=== PATIENT | female | born 1985 | race Caucasian/White ===

== ENCOUNTER 2018-11-05 10:03 | Emergency (ER) | payer OTHER ==
[~2018-11-05] VITALS: Ht 149.9 cm; Wt 63.5 kg
[~2018-11-05 10:03] MED LIST: CRESTOR10 MG PO; PANTOPRAZOLE SO40 MG PO; ZOLOFT50 MG PO
[2018-11-05] MEDS ORDERED: PROMETHAZINE HCL (IM) 25 MG/ML VIAL IV STA (10:19)
[2018-11-05] MEDS ORDERED: SODIUM CHLORIDE 0.9% 1000ML 1,000 ML IV STA (10:19)
[2018-11-05] MEDS ORDERED: MORPHINE SULFATE INJ 4 MG/ML INJ 1ML IV NR (10:30)
[2018-11-05 10:37] LABS: BILIRUBIN,URINE NEGATIVE (NEGATIVE); CLARITY,URINE CLEAR (CLEAR); COLOR,URINE YELLOW (YELLOW); KETONES,URINE NEGATIVE (NEGATIVE); LEUKOCYTE ESTERASE ,URINE NEGATIVE (NEGATIVE); NITRITE,URINE NEGATIVE (NEGATIVE); PREGNANCY TEST, URINE NEGATIVE (NEGATIVE); PROTEIN,URINE DIPSTICK NEGATIVE (NEGATIVE); URINE UROBILINOGEN 0.2 mg/dL (0.2 - 1)
[2018-11-05 10:53] LABS: BACTERIA,URINE RARE /HPF; EPITHELIAL CELLS,URINE FEW /LPF
[2018-11-05] MEDS ORDERED: DIATRIZOATE MEGL/DIATRIZOA SOD 30 ML BTL PO ONE (11:33)
[2018-11-05 11:43] LABS: BASOPHILS # (AUTO) 0.1 (0.0-0.1); BASOPHILS % 0.6 % (0.0-1.0); EOSINOPHILS % 0.1 % (0.0-6.0); HEMATOCRIT 38.4 % (34.2-44.1); HEMOGLOBIN 13.2 g/dL (12.0-16.0); LYMPHOCYTES # (AUTO) 1.7 (1.0-3.2); LYMPHOCYTES % 16.9 % (18.0-39.1); MEAN CORPUSCULAR HEMOGLOBIN 29.1 pg (28-32); MEAN CORPUSCULAR HGB CONC 34.4 g/dL (31-35); MEAN CORPUSCULAR VOLUME 84.6 fL (81-99); MONOCYTES # (AUTO) 0.3 (0.2-0.8); MONOCYTES % 3.3 % (4.4-11.3); NEUTROPHILS % 78.7 % (38.7-80.0); PLATELET COUNT 393 x10e3/uL (140-360); RED BLOOD COUNT 4.54 x10e6/uL (3.6-5.1); RED CELL DISTRIBUTION WIDTH 12.9 % (11.7-14.4)
[2018-11-05 12:13] LABS: AMPHETAMINES SCREEN,URINE NEGATIVE (NEGATIVE); BENZODIAZEPINES SCREEN,URINE NEGATIVE (NEGATIVE); PHENCYCLIDINE SCREEN,URINE NEGATIVE (NEGATIVE)
[2018-11-05 12:13] LABS: ALANINE AMINOTRANSFERASE 10 IU/L (0-55); ALBUMIN 4.3 g/dL (3.5-5.0); ALBUMIN/GLOBULIN RATIO 1.3 (0.8-2.0); ALKALINE PHOSPHATASE 51 IU/L (40-150); AMYLASE 77 U/L (25-125); ANION GAP 13.8 mmol/L (8-16); BLOOD UREA NITROGEN 5 mg/dL (7-26); BUN/CREATININE RATIO 6 (6-25); CALCIUM 9.5 mg/dL (8.4-10.2); CARBON DIOXIDE 25 mmol/L (22-29); CHLORIDE 102 mmol/L (98-107); CREATININE, SERUM 0.77 mg/dL (0.57-1.11); EST GLOMERULAR FILTRATION RATE > 60 ML/MIN (60-); GLUCOSE 98 mg/dL (74-118); LIPASE 11 U/L (8-78); POTASSIUM 3.8 mmol/L (3.5-5.1); SODIUM 137 mmol/L (136-145)
--- NOTE | 2018-11-05 13:26 | Diagnostic Imaging Report ---
EXAMINATION: CT of the abdomen and pelvis with contrast. TECHNIQUE: Spiral CT images of the abdomen and pelvis were performed from the lung bases to the lesser trochanters after the intravenous administration of 100 cc of Isovue-370 and the oral administration of Gastrografin. Coronal and sagittal reformatted images were obtained. COMPARISON: None. CLINICAL HISTORY:Left-sided abdominal pain, history of Crohn's disease DISCUSSION: ABDOMEN/PELVIS: LOWER THORAX:Unremarkable. HEPATOBILIARY: No focal hepatic lesions. No intra-or extrahepatic biliary ductal dilation. The gallbladder is normal. SPLEEN: No splenomegaly. PANCREAS: No focal masses or ductal dilatation. ADRENALS: No adrenal nodules. KIDNEYS/URETERS: Subcentimeter hypoattenuating lesion projecting from the upper pole of the right kidney too small to further characterize but likely to represent a small cyst. Similar lesion in the interpolar left kidney. PELVIC ORGANS/BLADDER: Urinary bladder is incompletely distended and poorly evaluated. Intrauterine device within the endometrial cavity. No adnexal mass. PERITONEUM/RETROPERITONEUM: No free air or fluid. LYMPH NODES: No intra-abdominal, retroperitoneal, pelvic or inguinal lymphadenopathy. VESSELS: The celiac trunk,superior and inferior mesenteric and bilateral renal arteries are patent The portal, superior mesenteric and splenic veins are patent. GI TRACT: The large bowel shows no evidence of distention or wall thickening. The appendix is normal. There is no small bowel dilatation to suggest obstruction. BONES AND SOFT TISSUE: No bony destructive lesions. No soft tissue abnormalities. IMPRESSION: No acute intra-abdominal or pelvic CT abnormalities. Signed by: Dr. Mika Kilgore M.D. on 11/05/2018 1:23 PM
[2018-11-05 13:59] VITALS: BP 129/94
[2018-11-05] MEDS ORDERED: IOPAMIDOL 370 MG/ML 200 ML INFUS..BTL INJ ONE (21:53)
[2018-11-05] MEDS ORDERED: SODIUM CHLORIDE 0.9% 50ML 50 ML ONE (21:53)
== END 2018-11-05 14:08 | disposition home or self-care (01) ==
LOC: ER 10:03
DX: R10.12 Left upper quadrant pain (principal); R10.32 Left lower quadrant pain; R11.2 Nausea with vomiting, unspecified; K50.90 Crohn's disease, unspecified, without complications
CPT/HCPCS: 36415; 74177; 80053; 80307; 81001; 81025; 82150; 83690; 83735; 85025; 99284; J2270; J2550; J7030; Q9967

== ENCOUNTER → 2018-11-21 | Day surgery (SDC) | payer OTHER ==
[~2018-11-21] MED LIST changes: +DICYCLOMINE HCL10 MG PO; +FENTANYL CITRATE/PF 100MCG/2 ML INJ ONE; +LIDOCAINE HCL 2% LOCAL INJ 5 ML SDV VIAL INJ ONE; +MIDAZOLAM HCL 2 MG/2 ML VIAL ONE; +PHENERGAN PO; +PROPOFOL IV EMULSION 10 MG/ML 50 ML VIAL ONE
--- OUTSIDE RECORDS SUMMARY | 2018-11-21 07:42 | XMS REPORT ---
Author Author [facility] Address Unknown Phone Unavailable Care Team Providers Care Production Control Clerk Name Role Phone Gracy VALENTINE Unavailable Unavailable Problems This patient has no known problems. Allergies, Adverse Reactions, Alerts This patient has no known allergies or adverse reactions. Medications This patient has no known medications. Results Test Description Test Time Test Comments Text Results Atomic Results Result Comments CT ABDOMEN/PELVIS W 2018-11-05 13:17:[address] [address] Patient Name: EL CHO MR #: [id number] : 1985 Age/Sex: 33/F Req #: [id number] Adm Physician: Ordered by: KELVIN PENALOZA CRANE ENGINEER Report #: [id number] Location: ER Room/Bed: Procedure: [id number] CT/CT ABDOMEN/PELVIS W Exam Date: 11/05/18 Exam Time: 1235 REPORT STATUS: Signed EXAMINATION: CT of the abdomen and pelvis with contr ast. TECHNIQUE: Spiral CT images of the abdomen and pelvis were performed from the lung bases to the lesser trochanters after the intravenous administration of 100 cc of Isovue-370 and the oral administration of Gastrografin. Coronal and sagittal reformatted images were obtained. COMPARISON: None. CLINICAL HISTORY:Left-sided abdominal pain, history of Crohn's disease DISCUSSION: ABDOMEN/PELVIS: LOWER THORAX:Unremarkable. HEPATOBILIARY: No focal hepatic lesions. No intra-or extrahepatic biliary ductal dilation. The gallbladder is normal. S PLEEN: No splenomegaly. PANCREAS: No focal masses or ductal dilatation. ADRENALS: No adrenal nodules. KIDNEYS/URETERS: Subcentimeter hypoattenuating lesion projecting from the upper pole of the right kidney too small to further characterize but likely to represent a small cyst. Similar lesion in the interpolar left kidney. PELVIC ORGANS/BLADDER: Urinary bladder is incompletely distended and poorly evaluated. Intrauterine device within the endometrial cavity. No adnexal mass. PERITONEUM/RETROPERITONEUM: No free air or fluid. LYMPH NODES: No intra-abdominal, retroperitoneal, pelvic or inguinal lymphadenopathy. VESSELS: The celiac trunk,superior and inferior mesenteric and bilateral renal arteries are patent The portal, superior mesenteric and splenic veins are patent. GI TRACT: The large bowel shows no evidence of distention or wall thickening. The appendix is normal. There is no small bowel dilatation to suggest obstruction. BONES AND SOFT TISSUE: No bony destructive lesions. No soft tissue abnormalities. IMPRESSION: No acute intra-abdominal or pelvic CT abnormalities. Signed by: Dr. Juve Combs M.D. on 11/05/2018 1:23 PM Dictated By: JUVE COMBS MD [id number] Transcribed By: GEETA on 11/05/18 1323 COPY TO: KELVIN PENALOZA NP
[2018-11-21 12:05] VITALS: BP 131/87
[2018-11-21 13:44] LABS: WBC,FECAL (FECAL LACTOFERRIN) NEGATIVE (NEGATIVE)
[2018-11-21 13:45] LABS: C DIFFICILE TOXIN A&B AMP PROB NEGATIVE (NEGATIVE)
--- NOTE | 2018-11-21 19:17 | Operative Report ---
DATE OF PROCEDURE: 11/21/2018 SURGEON: Eze Christensen MD PROCEDURES: EGD with biopsies and colonoscopy with polypectomy and biopsies. INDICATIONS FOR EGD: Heartburn, indigestion, nausea, and vomiting. INDICATIONS FOR COLONOSCOPY: Diarrhea, intermittent. MEDICATIONS: The patient was done under MAC. Please see anesthesiologist's note. PROCEDURE IN DETAIL: With the patient in left lateral decubitus position, a flexible fiberoptic Olympus gastroscope was introduced into the esophagus under direct visualization without any difficulty. There was some mild patchy erythema noted in distal esophagus. The scope was then advanced with ease into the stomach. Mucosa overlying the antrum and the body revealed some patchy erythema, low-grade to moderate edema, and biopsies were obtained and sent to stain for H pylori. Pylorus appeared to be of normal contour and shape. It was intubated with ease and the scope was advanced all the way to the 2nd portion of the duodenum. The scope was then withdrawn slowly, mucosa overlying the proximal 2nd portion and the duodenal bulb grossly appeared to be within normal limits. Biopsies were obtained to rule out sprue. The scope was then withdrawn back into the stomach and retroflexed. Mucosa overlying the fundus and cardia appeared to be within normal limits. The scope was then straightened out. The stomach was decompressed. The scope was subsequently withdrawn. The patient tolerated procedure well. IMPRESSION: 1. Distal esophagitis. 2. Gastritis, biopsied. Biopsies sent to stain for H pylori. 3. Rule out sprue. PLAN: Follow up pathology. Increase Protonix to 40 mg one p.o. a.c. b.i.d. The patient was then turned around. After adequate lubrication of the anal canal, a flexible fiberoptic Olympus colonoscope was inserted into the rectum with ease and advanced all the way to the cecum. Mucosa overlying the cecum appeared to be within normal limits. Ileocecal valve was intubated and the scope was advanced into the terminal ileum. Biopsies were obtained. The scope was then withdrawn back into the colon. It was then withdrawn slowly and one polyp was snared from the proximal ascending colon and polypectomy site was hemoclipped. There were some patchy mild inflammatory changes noted pretty much throughout the colon and multiple random biopsies were obtained. Two polyps were hot biopsied from the sigmoid. Two polyps were hot biopsied from the rectum. Scope was then retroflexed into the distal rectum and small internal hemorrhoids were noted, none of which was actively bleeding. The scope was then straightened out, it was subsequently withdrawn after securing an adequate stool specimen that was sent for the appropriate stool studies. The patient tolerated procedure well. IMPRESSION: 1. Ascending colon polyp snared and polypectomy site hemoclipped. 2. Mild patchy colitis. 3. Sigmoid colon polyps x2, hot biopsied. 4. Rectal polyps x2, hot biopsied. 5. Internal hemorrhoids, none actively bleeding. PLAN: Follow up histology. Follow up stool studies. Initiate VSL #3 one p.o. daily. Increase Bentyl to 20 mg one p.o. t.i.d. Eze Christensen MD [facility] [place] /[id number] cc: Chacho Christensen MD
== END | disposition home or self-care (01) ==
LOC: OR 07:39
PROVIDERS: ATTEND Internal Medicine Gastroenterology
DX: K29.60 Other gastritis without bleeding (principal); K63.5 Polyp of colon; K62.1 Rectal polyp; K52.9 Noninfective gastroenteritis and colitis, unspecified; K28.9 Gastrojejunal ulcer, unspecified as acute or chronic, without hemorrhage or perforation; K20.8 Other esophagitis; K64.8 Other hemorrhoids; F32.9 Major depressive disorder, single episode, unspecified; F41.9 Anxiety disorder, unspecified
CPT/HCPCS: 43239; 45380; 45384; 45385; 81025; 83630; 83993; 87045; 87177; 87328; 87493; J2001; J2250; J2704; 45378

== ENCOUNTER → 2020-02-20 | Day surgery (SDC) | payer BC, OTHER ==
[~2020-02-20] MED LIST changes: +GLYCOPYRROLATE INJ 0.2 MG/ML VIAL ONE; +HYOSCYAMINE 0.125 MG TAB ONE; +KETAMINE HCL INJ 50 MG/ML 10 ML VIAL ONE; +METOCLOPRAMIDE HCL 10 MG/2ML VIAL ONE; +MIDAZOLAM HCL 5 MG/ML VIAL ONE; +PROPOFOL IV EMULSION 10 MG/ML 20 ML VIAL ONE; -PROPOFOL IV EMULSION 10 MG/ML 50 ML VIAL ONE; +REGLAN10 MG PO; +TEMAZEPAM15 MG; +XANAX0.25 MG PO; +ZOFRAN8 MG PO
[2020-02-20 15:20] VITALS: BP 136/97
--- NOTE | 2020-02-20 16:14 | Operative Report ---
DATE OF PROCEDURE: 02/20/2020 SURGEON: Eze Christensen MD PROCEDURES: EGD with biopsies and colonoscopy with biopsies. INDICATION FOR EGD: Nausea and vomiting. INDICATIONS FOR COLONOSCOPY: Lower abdominal pain, history of Crohn disease. MEDICATIONS: The patient was done under MAC, please see anesthesiologist's note. PROCEDURE IN DETAIL: With the patient in left lateral decubitus position, a flexible fiberoptic Olympus gastroscope was introduced into the esophagus under direct visualization without any difficulty. There was some patchy erythema noted in distal esophagus. The scope was then advanced with ease into the stomach. Mucosa overlying the antrum and the body revealed some patchy erythema and [id number] edema, and biopsies were obtained, sent to stain for H. pylori. Pylorus was of normal contour and shape, it was intubated with ease and the scope, was advanced all the way to the second portion of the duodenum. Biopsies were obtained from the proximal second portion and the duodenal bulb to rule out sprue. The scope was then withdrawn back into the stomach and retroflexed, mucosa overlying the fundus and the cardia appeared to be within normal limits. The scope was then straightened out, it was subsequently withdrawn. The patient tolerated the procedure well. IMPRESSION: 1. Mild distal esophagitis. 2. Gastritis, biopsied, biopsies sent to stain for H. pylori. 3. Rule out sprue. PLAN: 1. Follow up histology. 2. Increase Protonix to 40 mg one p.o. a.c. b.i.d. DESCRIPTION OF PROCEDURE: The patient was then turned around and after adequate lubrication of the anal canal, a flexible fiberoptic Olympus colonoscope was inserted into the rectum with ease and advanced all the way to the cecum. There was some retained fecal material in the right colon, but visualization was fair. Ileocecal valve was intubated and the scope was advanced into the terminal ileum. The overlying mucosa appeared to be within normal limits. Biopsies were obtained. The scope was then withdrawn back into the colon, it was then withdrawn slowly whatever was visualized, the mucosa overlying the ascending and the transverse grossly appeared to be within normal limits. There was some patchy mild inflammatory changes noted in the left colon, multiple random biopsies were obtained. The scope was then retroflexed into the distal rectum and small internal hemorrhoids were noted, none of which was actively bleeding. The scope was then straightened out, it was subsequently withdrawn. The patient tolerated the procedure well. IMPRESSION: 1. Terminal ileum within normal limits, biopsies obtained. 2. Mild patchy inflammatory changes of left colon, biopsies obtained. 3. Internal hemorrhoids, none actively bleeding. PLAN: 1. Followup histology. 2. Check IBD panel. CRP, sedimentation rate and celiac panel. 3. Initiate VSL #3 one p.o. b.i.d. 4. Continue Bentyl 20 mg one p.o. t.i.d. along with her Crohn disease medical regimen. Eze Christensen MD [facility] [place][id number] cc: Chacho Christensen MD
[2020-02-25 06:10] LABS: ENDOMYSIAL ANTIBODIES, IGA Negative (Negative)
== END | disposition home or self-care (01) ==
LOC: OR 10:55
PROVIDERS: ATTEND Internal Medicine Gastroenterology
DX: K29.60 Other gastritis without bleeding (principal); K52.9 Noninfective gastroenteritis and colitis, unspecified; K29.80 Duodenitis without bleeding; K28.9 Gastrojejunal ulcer, unspecified as acute or chronic, without hemorrhage or perforation; K20.8 Other esophagitis; K59.00 Constipation, unspecified; K64.8 Other hemorrhoids; K50.90 Crohn's disease, unspecified, without complications; R03.0 Elevated blood-pressure reading, without diagnosis of hypertension; F32.9 Major depressive disorder, single episode, unspecified; Z01.812 Encounter for preprocedural laboratory examination; Z11.59 Encounter for screening for other viral diseases
CPT/HCPCS: 36415; 43239; 45380; 81025; 82784; 83516; 85651; 86140; 86256 ×2; 86671; 87635; J2001; J2250 ×2; J2704; J2765; J3010; 45378

== ENCOUNTER → 2021-05-19 | Outpatient (CLI) | payer BC ==
[~2021-05-19] MED LIST changes: -FENTANYL CITRATE/PF 100MCG/2 ML INJ ONE; -GLYCOPYRROLATE INJ 0.2 MG/ML VIAL ONE; -HYOSCYAMINE 0.125 MG TAB ONE; -KETAMINE HCL INJ 50 MG/ML 10 ML VIAL ONE; -LIDOCAINE HCL 2% LOCAL INJ 5 ML SDV VIAL INJ ONE; -METOCLOPRAMIDE HCL 10 MG/2ML VIAL ONE; -MIDAZOLAM HCL 2 MG/2 ML VIAL ONE; -MIDAZOLAM HCL 5 MG/ML VIAL ONE; -PROPOFOL IV EMULSION 10 MG/ML 20 ML VIAL ONE
== END ==
LOC: US 09:43
PROVIDERS: ATTEND Internal Medicine Gastroenterology
DX: R10.10 Upper abdominal pain, unspecified (principal); R11.2 Nausea with vomiting, unspecified
CPT/HCPCS: 76705

== ENCOUNTER 2021-11-07 19:11 | Emergency (ER) | payer BC ==
[~2021-11-07] VITALS: Ht 152.4 cm; Wt 63.5 kg
[2021-11-07 19:26] LABS: BASOPHILS # (AUTO) 0.1 (0.0-0.1); BASOPHILS % 0.4 % (0.0-1.0); EOSINOPHILS % 0.1 % (0.0-6.0); HEMATOCRIT 38.1 % (34.2-44.1); HEMOGLOBIN 13.1 g/dL (12.0-16.0); LYMPHOCYTES # (AUTO) 2.7 (1.0-3.2); LYMPHOCYTES % 17.4 % (18.0-39.1); MEAN CORPUSCULAR HEMOGLOBIN 29.9 pg (28-32); MEAN CORPUSCULAR HGB CONC 34.4 g/dL (31-35); MONOCYTES # (AUTO) 1.6 (0.2-0.8); MONOCYTES % 10.1 % (4.4-11.3); NEUTROPHILS # (AUTO) 11.2 (2.1-6.9); NEUTROPHILS % 71.5 % (38.7-80.0); PLATELET COUNT 432 x10e3/uL (140-360); RED BLOOD COUNT 4.38 x10e6/uL (3.6-5.1); RED CELL DISTRIBUTION WIDTH 13.5 % (11.7-14.4)
[2021-11-07] MEDS ORDERED: LORAZEPAM INJ 2 MG/ML VIAL ONE (19:43)
[2021-11-07 19:44] LABS: SALICYLATE < 5.0 mg/dL (0-30)
[2021-11-07] MEDS ORDERED: LEVETIRACETAM 500 MG/5 ML VIAL IV ONE (19:44)
[2021-11-07] MEDS ORDERED: LEVETIRACETAM 500MG/5ML VIAL 1,000 MG in SODIUM CHLORIDE 0.9% 100 ML IV ONE (19:45)
[2021-11-07] MEDS ORDERED: SODIUM CHLORIDE 0.9% 100 ML ONE (19:46)
[2021-11-07 19:47] LABS: ALBUMIN 4.2 g/dL (3.5-5.0); ALBUMIN/GLOBULIN RATIO 1.2 (0.8-2.0); CREATININE, SERUM 0.74 mg/dL (0.57-1.11)
[2021-11-07 19:51] LABS: CLARITY,URINE CLOUDY (CLEAR); COLOR,URINE YELLOW (YELLOW); KETONES,URINE 1+ (NEGATIVE); LEUKOCYTE ESTERASE ,URINE NEGATIVE (NEGATIVE); NITRITE,URINE NEGATIVE (NEGATIVE); PROTEIN,URINE DIPSTICK 1+ (NEGATIVE); URINE UROBILINOGEN 0.2 mg/dL (0.2 - 1)
[2021-11-07 19:54] LABS: AMPHETAMINES SCREEN,URINE NEGATIVE (NEGATIVE); BENZODIAZEPINES SCREEN,URINE POSITIVE (NEGATIVE); PHENCYCLIDINE SCREEN,URINE NEGATIVE (NEGATIVE)
[2021-11-07 20:05] LABS: BACTERIA,URINE FEW /HPF; EPITHELIAL CELLS,URINE MANY /LPF; RBC,URINE 0-5 /HPF (0-5); WBC,URINE (MAN) 0-5 /HPF (0-5)
[2021-11-07 20:06] LABS: AMORPHOUS SEDIMENT,URINE MODERATE (FEW)
[2021-11-07] MEDS ORDERED: POTASSIUM CHLORIDE 20 MEQ TAB CR PO STA (20:16)
[2021-11-07 20:20] LABS: CREATINE KINASE MB 0.6 ng/mL (0-5.0)
[2021-11-07] MEDS ORDERED: ACETAMINOPHEN 325 MG TAB PO ONE (23:15)
== END 2021-11-07 23:41 | disposition other institution (70) ==
LOC: ER 19:15
DX: R44.0 Auditory hallucinations (principal); R56.9 Unspecified convulsions; F41.9 Anxiety disorder, unspecified; R94.31 Abnormal electrocardiogram [ECG] [EKG]; Z20.822 Contact with and (suspected) exposure to COVID-19; Z87.19 Personal history of other diseases of the digestive system
CPT/HCPCS: 36415; 70450; 80053; 80307; 80320; 80329 ×2; 81001; 82550; 82553; 84484; 84702; 85025; 93005; 99284; J1953; J2060; J7050; U0002

== ENCOUNTER 2024-10-10 13:31 | Inpatient (IN) | payer BC ==
[~2024-10-10] VITALS: Ht 152.4 cm; Wt 78.5 kg
[~2024-10-10 13:31] MED LIST changes: +KEPPRA750 MG PO; +LEVETIRACETAM1000 MG PO; +REGLAN5 MG PO; +SYNTHROID75 MCG PO; -TEMAZEPAM15 MG; +TEMAZEPAM15 MG PO
[2024-10-10 15:03] VITALS: TEMP 99.1
[2024-10-10 15:26] LABS: BASOPHILS % 0.2 % (0.0-1.0); EOSINOPHILS % 0.1 % (0.0-6.0); HEMATOCRIT 43.3 % (34.2-44.1); HEMOGLOBIN 14.7 g/dL (12.0-16.0); LYMPHOCYTES # (AUTO) 1.6 (1.0-3.2); LYMPHOCYTES % 19.8 % (18.0-39.1); MEAN CORPUSCULAR HEMOGLOBIN 30.5 pg (28-32); MEAN CORPUSCULAR HGB CONC 33.9 g/dL (31-35); MEAN CORPUSCULAR VOLUME 89.8 fL (81-99); MONOCYTES # (AUTO) 0.6 (0.2-0.8); MONOCYTES % 7.1 % (4.4-11.3); NEUTROPHILS % 72.6 % (38.7-80.0); PLATELET COUNT 344 x10e3/uL (140-360); RED BLOOD COUNT 4.82 x10e6/uL (3.6-5.1); RED CELL DISTRIBUTION WIDTH 14.6 % (11.7-14.4); WHITE BLOOD COUNT 8.27 x10e3/uL (4.8-10.8)
[2024-10-10 15:49] LABS: CORONAVIRUS COVID-19 AG NEGATIVE (NEGATIVE); INFLUENZA A AG NEGATIVE (NEGATIVE); INFLUENZA B AG NEGATIVE (NEGATIVE)
[2024-10-10 15:53] LABS: ALBUMIN 4.4 g/dL (3.5-5.0); ALBUMIN/GLOBULIN RATIO 1.2 (0.8-2.0); ANION GAP 21.4 mmol/L (8-16); BILIRUBIN,TOTAL 0.7 mg/dL (0.2-1.2); CALCIUM 9.6 mg/dL (8.4-10.2); CREATININE, SERUM 0.8 mg/dL (0.57-1.11); TOTAL PROTEIN 8.2 g/dL (6.5-8.1)
[2024-10-10 15:59] LABS: POTASSIUM 3.4 mmol/L (3.5-5.1)
[2024-10-10 17:26] LABS: BILIRUBIN,URINE MODERATE (NEGATIVE); CLARITY,URINE CLOUDY (CLEAR); COLOR,URINE YELLOW (YELLOW); GLUCOSE, URINE NEGATIVE (NEGATIVE); KETONES,URINE 2+ (NEGATIVE); LEUKOCYTE ESTERASE ,URINE TRACE (NEGATIVE); NITRITE,URINE NEGATIVE (NEGATIVE); PH,URINE 5.5 (5 - 7); PROTEIN,URINE DIPSTICK >=300 (NEGATIVE); URINE UROBILINOGEN 0.2 mg/dL (0.2 - 1)
[2024-10-10 17:28] LABS: AMORPHOUS SEDIMENT,URINE FEW (FEW); BACTERIA,URINE MANY /HPF; EPITHELIAL CELLS,URINE FEW /LPF; RBC,URINE 0-5 /HPF (0-5); WBC,URINE (MAN) 0-5 /HPF (0-5)
[2024-10-10] MEDS ORDERED: IOPAMIDOL 370 MG/ML 100 ML INFUS..BTL INJ ONE (17:29)
[2024-10-10] MEDS: SODIUM CHLORIDE 0.9% 1000ML 1,000 ML IV STA (17:59)
[2024-10-10] MEDS: ONDANSETRON HCL INJ 2MG/ML 2ML 2 MG/ML VIAL IV STA ×2 (18:00→20:06)
[2024-10-10] MEDS: DICYCLOMINE HCL 20 MG/2 ML VIAL IM ONE (18:00)
[2024-10-10] MEDS ORDERED: KETOROLAC TROMETHAMINE 30 MG/ML VIAL IV STA (19:46)
[2024-10-10] MEDS: Morphine 4mg INJECTION 4 MG/ML INJ IV ONE (20:06)
[2024-10-10 20:14] LABS: AMPHETAMINES SCREEN,URINE NEGATIVE (NEGATIVE); CANNABINOIDS SCREEN,URINE POSITIVE (NEGATIVE); COCAINE SCREEN,URINE POSITIVE (NEGATIVE); METHADONE SCREEN, URINE POSITIVE (NEGATIVE); OPIATES SCREEN,URINE NEGATIVE (NEGATIVE); PHENCYCLIDINE SCREEN,URINE NEGATIVE (NEGATIVE)
[2024-10-10 20:15] LABS: BENZODIAZEPINES SCREEN,URINE POSITIVE (NEGATIVE)
[2024-10-10] MEDS ORDERED: ONDANSETRON HCL INJ 2MG/ML 2ML 2 MG/ML VIAL IV PRN (20:15)
[2024-10-10] MEDS ORDERED: ACETAMINOPHEN 325 MG TAB PO PRN (20:15)
[2024-10-10] MEDS: DEXTROSE 5%/0.45% SOD CHL 1,000 ML IV SCH (20:15)
[2024-10-10] MEDS ORDERED: KETOROLAC TROMETHAMINE 30 MG/ML VIAL IM PRN (20:30)
[2024-10-10] MEDS: SODIUM CHLORIDE 0.9% 1000ML 1,000 ML IV SCH (20:44)
[2024-10-10 21:14] VITALS: PULSE 83; RESP 20
[2024-10-10 21:20] VITALS: BP 131/73; PULSE 69; RESP 18; TEMP 99.6; O2SAT 95
[2024-10-10] MEDS: TEMAZEPAM 15 MG CAP PO SCH (22:07)
[2024-10-10] MEDS: DICYCLOMINE HCL 10 MG CAP PO SCH (22:07)
[2024-10-10 22:31] VITALS: BP 135/98; PULSE 84; RESP 18; TEMP 99.6
[2024-10-11] VITALS (9 sets, daily range): BP systolic 117–170; BP diastolic 66–109; PULSE 58–88; RESP 18–19; TEMP 97.6–99.1; O2SAT 92–99
[2024-10-11] MEDS: Morphine 4mg INJECTION 4 MG/ML INJ IV PRN (00:24)
[2024-10-11] MEDS: ONDANSETRON HCL 4 MG ORAL DISINTEGRATING TAB PO PRN (00:26)
[2024-10-11] MEDS: METOCLOPRAMIDE HCL 10 MG TAB PO SCH (05:45)
[2024-10-11] MEDS: LEVOTHYROXINE SODIUM 75 MCG TAB PO ONE (05:46)
[2024-10-11] MEDS ORDERED: LEVOTHYROXINE SODIUM 75 MCG TAB PO SCH (06:00)
[2024-10-11] MEDS ORDERED: LEVOTHYROXINE88 MCG PO (07:04)
[2024-10-11 07:31] LABS: BASOPHILS % 0.3 % (0.0-1.0); EOSINOPHILS # (AUTO) 0.1 (0.0-0.4); EOSINOPHILS % 1.6 % (0.0-6.0); HEMATOCRIT 38.9 % (34.2-44.1); HEMOGLOBIN 12.6 g/dL (12.0-16.0); LYMPHOCYTES # (AUTO) 2.2 (1.0-3.2); LYMPHOCYTES % 38.7 % (18.0-39.1); MEAN CORPUSCULAR HEMOGLOBIN 30.4 pg (28-32); MEAN CORPUSCULAR HGB CONC 32.4 g/dL (31-35); MONOCYTES # (AUTO) 0.4 (0.2-0.8); MONOCYTES % 6.7 % (4.4-11.3); NEUTROPHILS % 52.5 % (38.7-80.0); PLATELET COUNT 271 x10e3/uL (140-360); RED BLOOD COUNT 4.14 x10e6/uL (3.6-5.1); WHITE BLOOD COUNT 5.79 x10e3/uL (4.8-10.8)
[2024-10-11 08:01] LABS: ALBUMIN 3.8 g/dL (3.5-5.0); ALBUMIN/GLOBULIN RATIO 1.2 (0.8-2.0); ANION GAP 16.2 mmol/L (8-16); BILIRUBIN,TOTAL 0.5 mg/dL (0.2-1.2); CALCIUM 8.3 mg/dL (8.4-10.2); CREATININE, SERUM 0.7 mg/dL (0.57-1.11); POTASSIUM 3.2 mmol/L (3.5-5.1); TOTAL PROTEIN 7.1 g/dL (6.5-8.1)
[2024-10-11] MEDS: PANTOPRAZOLE SOD 40 MG TABEC PO SCH (08:37)
[2024-10-11] MEDS: SERTRALINE HCL 50 MG TAB PO SCH (08:37)
[2024-10-11] MEDS: LEVETIRACETAM 500 MG TAB PO SCH (08:39)
[2024-10-11] MEDS: ENOXAPARIN SOD INJ 40 MG/0.4 ML SYR SC SCH (08:43)
[2024-10-11] MEDS ORDERED: METOCLOPRAMIDE HCL 10 MG TAB PO PRN (09:00)
[2024-10-11] MEDS ORDERED: DIAZEPAM INJ 5 MG/ML 2 ML IV ONE ×2 (13:15→13:30)
[2024-10-11] MEDS: ALPRAZOLAM 0.5 MG TAB PO PRN (13:38)
[2024-10-11] MEDS ORDERED: DIAZEPAM INJ 5 MG/ML 2 ML IV PRN ×2 (13:45→14:15)
[2024-10-11] MEDS: ALPRAZOLAM 0.5 MG TAB PO ONE (15:02)
[2024-10-11 15:21] LABS: MAGNESIUM 1.9 MG/DL (1.3-2.1); PHOSPHORUS 2.9 MG/DL (2.3-4.7)
[2024-10-11] MEDS ORDERED: HYDRALAZINE HCL 20 MG/ML VIAL IV PRN (20:45)
[2024-10-12 04:00] VITALS: BP 122/86; PULSE 88; RESP 18; TEMP 98.8; O2SAT 95
[2024-10-12] MEDS: LEVOTHYROXINE SODIUM 88 MCG TAB PO SCH (06:00)
[2024-10-12] MEDS ORDERED: LEVOTHYROXINE SODIUM 75 MCG TAB PO SCH (06:00)
[2024-10-12 06:54] LABS: BASOPHILS % 0.4 % (0.0-1.0); EOSINOPHILS % 0.2 % (0.0-6.0); HEMATOCRIT 35.9 % (34.2-44.1); HEMOGLOBIN 12.4 g/dL (12.0-16.0); LYMPHOCYTES # (AUTO) 2.4 (1.0-3.2); LYMPHOCYTES % 51.2 % (18.0-39.1); MEAN CORPUSCULAR HEMOGLOBIN 30.6 pg (28-32); MEAN CORPUSCULAR HGB CONC 34.5 g/dL (31-35); MEAN CORPUSCULAR VOLUME 88.6 fL (81-99); MONOCYTES # (AUTO) 0.3 (0.2-0.8); MONOCYTES % 6.6 % (4.4-11.3); NEUTROPHILS # (AUTO) 1.9 (2.1-6.9); NEUTROPHILS % 40.7 % (38.7-80.0); PLATELET COUNT 275 x10e3/uL (140-360); RED BLOOD COUNT 4.05 x10e6/uL (3.6-5.1); RED CELL DISTRIBUTION WIDTH 15.4 % (11.7-14.4); WHITE BLOOD COUNT 4.69 x10e3/uL (4.8-10.8)
[2024-10-12 07:19] LABS: AMYLASE 27 U/L (25-125); LIPASE 31 U/L (8-78)
[2024-10-12 07:22] LABS: ALANINE AMINOTRANSFERASE 32 IU/L (0-55); ALBUMIN 3.8 g/dL (3.5-5.0); ALBUMIN/GLOBULIN RATIO 1.3 (0.8-2.0); ALKALINE PHOSPHATASE 34 IU/L (40-150); ANION GAP 16.4 mmol/L (8-16); BILIRUBIN,TOTAL 0.4 mg/dL (0.2-1.2); BLOOD UREA NITROGEN < 5 mg/dL (7-26); CALCIUM 8.5 mg/dL (8.4-10.2); CARBON DIOXIDE 21 mmol/L (22-29); CHLORIDE 105 mmol/L (98-107); CREATININE, SERUM 0.63 mg/dL (0.57-1.11); EST GLOMERULAR FILTRATION RATE 116 ML/MIN (>=60); SODIUM 139 mmol/L (136-145); TOTAL PROTEIN 6.8 g/dL (6.5-8.1)
[2024-10-12 07:23] LABS: BUN/CREATININE RATIO 8 (6-25); POTASSIUM 3.4 mmol/L (3.5-5.1)
[2024-10-12] MEDS ORDERED: GUAIFENESIN/DEXTROMETHORPHAN LIQD 5 ML UDC NG PRN (07:30)
[2024-10-12 07:32] LABS: GLUCOSE 101 mg/dL (74-118)
[2024-10-12 08:00] VITALS: BP 134/95; PULSE 73; RESP 17; TEMP 97.7; O2SAT 93
[2024-10-12] MEDS: GUAIFENESIN 600MG/DEXTROMETHORPHAN 30MG TABSR PO SCH (08:55)
[2024-10-12 09:00] VITALS: BP 134/95; PULSE 73; RESP 17; TEMP 97.7; O2SAT 93
[2024-10-12 10:56] LABS: LYMPHOCYTES % (MANUAL) 38 % (19-48); MONOCYTES % (MANUAL) 8 % (3.4-9.0); NEUTROPHILS % (MANUAL) 46 % (40-74); PLATELET ESTIMATE ADEQUATE; PLATELET MORPHOLOGY COMMENT NORMAL; RBC MORPHOLOGY COMMENT NORMAL; REACTIVE LYMPHOCYTES 8
[2024-10-12 12:00] VITALS: BP 125/96; PULSE 63; RESP 18; TEMP 97.8; O2SAT 94
[2024-10-12 16:00] VITALS: BP 131/82; PULSE 68; RESP 18; TEMP 98; O2SAT 93
[2024-10-12] MEDS: FAMOTIDINE 20 MG TAB PO SCH (16:28)
[2024-10-12] MEDS: Morphine 4mg INJECTION 4 MG/ML INJ IV PRN (16:29)
[2024-10-12 20:23] VITALS: BP 132/92; PULSE 64; RESP 18; TEMP 98; O2SAT 92
[2024-10-13 00:48] VITALS: BP 119/83; PULSE 75; RESP 16; TEMP 97.8; O2SAT 91
[2024-10-13] MEDS: ONDANSETRON HCL 4 MG ORAL DISINTEGRATING TAB PO PRN (04:58)
[2024-10-13 05:22] LABS: BASOPHILS % 0.2 % (0.0-1.0); EOSINOPHILS % 0.7 % (0.0-6.0); HEMATOCRIT 37.6 % (34.2-44.1); HEMOGLOBIN 12.8 g/dL (12.0-16.0); LYMPHOCYTES % 53.9 % (18.0-39.1); MEAN CORPUSCULAR HEMOGLOBIN 30.1 pg (28-32); MEAN CORPUSCULAR VOLUME 88.5 fL (81-99); MONOCYTES # (AUTO) 0.3 (0.2-0.8); MONOCYTES % 5.3 % (4.4-11.3); NEUTROPHILS # (AUTO) 2.2 (2.1-6.9); NEUTROPHILS % 39.2 % (38.7-80.0); PLATELET COUNT 290 x10e3/uL (140-360); RED BLOOD COUNT 4.25 x10e6/uL (3.6-5.1); RED CELL DISTRIBUTION WIDTH 15.1 % (11.7-14.4); WHITE BLOOD COUNT 5.51 x10e3/uL (4.8-10.8)
[2024-10-13 05:49] LABS: ALANINE AMINOTRANSFERASE 40 IU/L (0-55); ALBUMIN 3.7 g/dL (3.5-5.0); ALBUMIN/GLOBULIN RATIO 1.1 (0.8-2.0); ALKALINE PHOSPHATASE 32 IU/L (40-150); ANION GAP 16.2 mmol/L (8-16); BILIRUBIN,TOTAL 0.4 mg/dL (0.2-1.2); BLOOD UREA NITROGEN < 5 mg/dL (7-26); CALCIUM 8.9 mg/dL (8.4-10.2); CARBON DIOXIDE 22 mmol/L (22-29); CHLORIDE 100 mmol/L (98-107); CREATININE, SERUM 0.63 mg/dL (0.57-1.11); EST GLOMERULAR FILTRATION RATE 116 ML/MIN (>=60); GLUCOSE 95 mg/dL (74-118); SODIUM 135 mmol/L (136-145)
[2024-10-13 05:51] LABS: BUN/CREATININE RATIO 8 (6-25); POTASSIUM 3.2 mmol/L (3.5-5.1)
[2024-10-13 08:00] VITALS: BP 127/94; PULSE 69; RESP 17; TEMP 97.8; O2SAT 92
[2024-10-13 11:25] LABS: LYMPHOCYTES % (MANUAL) 46 % (19-48); MONOCYTES % (MANUAL) 4 % (3.4-9.0); NEUTROPHILS % (MANUAL) 42 % (40-74); PLATELET ESTIMATE ADEQUATE; PLATELET MORPHOLOGY COMMENT NORMAL; RBC MORPHOLOGY COMMENT NORMAL; REACTIVE LYMPHOCYTES 8
[2024-10-13 12:00] VITALS: BP 135/90; PULSE 57; RESP 18; TEMP 97.5; O2SAT 94
== END 2024-10-13 12:15 | disposition home or self-care (01) | DRG 392 ==
LOC: ER 17:13 → ERHOLD 20:10 → MED/SURG 21:49 → OBSVTOIN 10-11 08:58
PROVIDERS: ADMIT Family Medicine Adult Medicine; ATTEND Family Medicine Adult Medicine
DX: R19.7 Diarrhea, unspecified (principal); E87.20 Acidosis, unspecified; E87.1 Hypo-osmolality and hyponatremia; K50.90 Crohn's disease, unspecified, without complications; R10.12 Left upper quadrant pain; R10.32 Left lower quadrant pain; E86.0 Dehydration; J06.9 Acute upper respiratory infection, unspecified; R74.8 Abnormal levels of other serum enzymes; R94.31 Abnormal electrocardiogram [ECG] [EKG]; E03.9 Hypothyroidism, unspecified; G40.909 Epilepsy, unspecified, not intractable, without status epilepticus; F12.10 Cannabis abuse, uncomplicated; E66.9 Obesity, unspecified; Z68.33 Body mass index [BMI] 33.0-33.9, adult; K76.0 Fatty (change of) liver, not elsewhere classified; F41.8 Other specified anxiety disorders; T50.905A Adverse effect of unspecified drugs, medicaments and biological substances, initial encounter; Y92.009 Unspecified place in unspecified non-institutional (private) residence as the place of occurrence of the external cause; Z11.52 Encounter for screening for COVID-19; Z79.899 Other long term (current) drug therapy
CPT/HCPCS: 36415; 74177; 80053; 80307; 81001; 81025; 82150; 82542; 82550; 83605; 83690; 83735; 84100; 84443; 84702; 85025; 86039; 86140; 93005; 99284; G0378; J1650; J2270; J2405; J2470; J7030; Q0162; Q9967